=== PATIENT | female | born 1990 | race Caucasian/White ===

== ENCOUNTER 2018-07-23 01:32 | Emergency (ER) | payer BC ==
[2018-07-23 02:03] LABS: #Lymphocytes 2.5 thou/uL (1.20-3.40); #Monocytes 0.5 thou/uL (0.11-0.59); #Neutrophils 5.5 thou/uL (1.40-6.50); %Basophils 0.3 % (0.0-1.0); %Eosinophils 0.2 % (0.0-10.0); %Lymphocytes 29.5 % (21.0-51.0); %Monocytes 5.5 % (0.0-10.0); %Neutrophils 64.5 % (42.0-75.0); Hemoglobin 14.1 g/dL (12.0-16.0); Mean Corpuscular HGB CONC 34.1 g/dL (32.0-36.0); Mean Corpuscular Hemoglobin 31.1 pg (27.0-31.0); Mean Corpuscular Volume 91.2 fL (78.0-98.0); Mean Platelet Volume 8.3 fL (7.4-10.4); Platelet Count 246 thou/uL (130-400); RBC Distribution Width 12.3 % (11.5-14.5); Red Blood Cell (RBC) Count 4.53 mill/uL (4.20-5.40); White Blood Cell (WBC) Count 8.5 thou/uL (4.8-10.8)
[2018-07-23 02:10] LABS: BHCG - Serum Negative (NEGATIVE); Pregs Control Background? CLEAR/WHITE (CLR/WHITE); Pregs Control Bar Appear? YES (CONTROL BAR)
[2018-07-23 02:24] LABS: ALT (SGPT) 13 U/L (8-55); AST (SGOT) 18 U/L (5-34); Albumin 4.3 g/dL (3.5-5.0); Alkaline Phosphatase 40 U/L (40-150); Anion Gap 14 mmol/L (10-20); BUN (Urea Nitrogen) 7 mg/dL (7.0-18.7); Bilirubin, Total 0.5 mg/dL (0.2-1.2); Calc. Creatinine Clearance 0 mL/min (70-130); Calcium 9.5 mg/dL (7.8-10.44); Carbon Dioxide 20 mmol/L (22-29); Chloride 108 mmol/L (98-107); Estimated GFR-MDRD Greater than 90; Globulin 2.9 g/dL (2.4-3.5); Glucose 109 mg/dL (70-105); Potassium 3.7 mmol/L (3.5-5.1); Protein, Total 7.2 g/dL (6.0-8.3); Sodium 138 mmol/L (136-145)
[2018-07-23 02:36] LABS: Thyroid Stimulating Hormone 0.4035 uIU/mL (0.35-4.94)
[2018-07-23] MEDS ORDERED: Ibuprofen 200 MG TAB ONE (02:57)
[2018-07-23] MEDS ORDERED: Ketorolac Tromethamine 30 MG/ML VIAL ONE (03:15)
[2018-07-23] MEDS ORDERED: Metoclopramide HCl 10 MG/2 ML VIAL ONE (03:15)
[2018-07-23] MEDS ORDERED: diphenhydrAMINE 50 MG/ML VIAL ONE (03:15)
[2018-07-23] MEDS ORDERED: methylPREDNISolone Sod Succ/PF 125 MG/2 ML VIAL ONE (04:11)
[2018-07-23] MEDS ORDERED: Magnesium 2 GM/50 ML BAG (IN WATER) ONE (04:11)
[2018-07-23 05:41] LABS: Color Of CSF Supernatant COLORLESS (Colorless); Tube # 2; Unspun CSF Color RED (Colorless)
[2018-07-23 05:54] LABS: CSF, Glucose 56 mg/dl (40-70); CSF, Protein 183 mg/dL (15-40)
[2018-07-23 06:41] LABS: CSF Source CSF; Clarity Hazy (Clear); Tube # 1
[2018-07-23 08:03] LABS: CSF Source CSF; Clarity Hazy (Clear); RBC Count - Manual 711 /cumm (None Seen); Tube # 4; WBC/NonHematics Count - Manual 165 /cumm (0-5); WBC/NonHematics Count - Manual 88 /cumm (0-5)
[2018-07-23 08:44] LABS: Cell Count Non Hematic 2 %; Lymphocytes 37 %; Segmented Neutrophils 61 %
[2018-07-23 08:46] LABS: Lymphocytes 40 %
[2018-07-23 08:47] LABS: Cell Count Non Hematic 10 %; Segmented Neutrophils 49 %
--- NOTE | 2018-07-23 08:49 | CT ---
PRELIMINARY REPORT/[facility]/EMERGENTY AFTER-HOURS PROCEDURE CT Head Without Contrast EXAM DATE/TIME: 07/23/2018 2:27 AM CLINICAL HISTORY: 28 years old, female; Pain; Patient HX: Fever, light sensitivity, headache. Worst headache in her lif e TECHNIQUE: Imaging protocol: Axial computed tomography images of the head without contrast. COMPARISON: No relevant prior studies available. FINDINGS: Brain: Normal. No hemorrhage. Unremarkable white matter. No mass effect. Ventricles: Normal. No ventriculomegaly. Bones/joints: Unremarkable. No acute fracture. Sinuses: Visualized sinuses are unremarkable. No fluid levels. Mastoid air cells: Visualized mastoid air cells are well aerated. No mastoid effusion. Soft tissues: Unremarkable. IMPRESSION: No acute intracranial hemorrhage. Thank you for allowing us to participate in the care of your patient. Dictated and Authenticated by: Amado Quinonez MD 07/23/2018 2:53 AM Central Time ([place] & [place]) FINAL REPORT CT BRAIN WITHOUT CONTRAST: I agree with the preliminary report given by Dr. Amado Quinonez of [facility]. POS: [facility]
== END 2018-07-23 07:19 | disposition home or self-care (01) ==
LOC: ERS 01:32
DX: R51 Headache (principal); R50.9 Fever, unspecified
CPT/HCPCS: 36415; 62270; 70450; 80053; 82945; 84157; 84443; 84484; 84703; 85025; 85060; 85652; 86140; 87040; 87070; 87205; 87804; 89051; 93005; 96361; 96365; 96375; J1200; J1885; J2765; J2930; J3475

== ENCOUNTER 2018-07-24 11:30 | Emergency (ER) | payer BC ==
[2018-07-24 12:05] LABS: #Basophils 0.1 thou/uL (0.0-0.2); #Lymphocytes 2.8 thou/uL (1.20-3.40); #Monocytes 0.4 thou/uL (0.11-0.59); #Neutrophils 4.5 thou/uL (1.40-6.50); %Basophils 0.7 % (0.0-1.0); %Eosinophils 0.4 % (0.0-10.0); %Lymphocytes 36.3 % (21.0-51.0); %Monocytes 5.1 % (0.0-10.0); %Neutrophils 57.4 % (42.0-75.0); Hemoglobin 13.2 g/dL (12.0-16.0); Mean Corpuscular HGB CONC 34.7 g/dL (32.0-36.0); Mean Corpuscular Hemoglobin 31.5 pg (27.0-31.0); Mean Corpuscular Volume 90.6 fL (78.0-98.0); Mean Platelet Volume 8.4 fL (7.4-10.4); Platelet Count 197 thou/uL (130-400); RBC Distribution Width 12.1 % (11.5-14.5); Red Blood Cell (RBC) Count 4.21 mill/uL (4.20-5.40); White Blood Cell (WBC) Count 7.8 thou/uL (4.8-10.8)
[2018-07-24 12:27] LABS: ALT (SGPT) 11 U/L (8-55); AST (SGOT) 14 U/L (5-34); Albumin 4.2 g/dL (3.5-5.0); Alkaline Phosphatase 38 U/L (40-150); Anion Gap 13 mmol/L (10-20); BUN (Urea Nitrogen) 14 mg/dL (7.0-18.7); Bilirubin, Total 0.6 mg/dL (0.2-1.2); Calc. Creatinine Clearance 0 mL/min (70-130); Calcium 9.4 mg/dL (7.8-10.44); Carbon Dioxide 21 mmol/L (22-29); Chloride 111 mmol/L (98-107); Estimated GFR-MDRD Greater than 90; Globulin 2.5 g/dL (2.4-3.5); Glucose 104 mg/dL (70-105); Potassium 3.9 mmol/L (3.5-5.1); Protein, Total 6.7 g/dL (6.0-8.3); Sodium 141 mmol/L (136-145)
[2018-07-24] MEDS ORDERED: Metoclopramide HCl 10 MG/2 ML VIAL ONE (13:49)
[2018-07-24] MEDS ORDERED: Ondansetron PF 4 MG/2 ML Vial ONE (13:49)
[2018-07-24] MEDS ORDERED: Dexamethasone 10 MG/ML VIAL ONE (13:49)
[2018-07-24] MEDS ORDERED: Ketorolac Tromethamine 30 MG/ML VIAL ONE (13:49)
[2018-07-24] MEDS ORDERED: diphenhydrAMINE 50 MG/ML VIAL ONE (13:49)
== END 2018-07-24 15:39 | disposition home or self-care (01) ==
LOC: ERS 11:30
DX: G97.1 Other reaction to spinal and lumbar puncture (principal)
CPT/HCPCS: 36415; 80053; 85025; 86850; 86900; 86901; 96365; 96375; J1100; J1200; J1885; J2405; J2765